=== PATIENT | male | born 1985 | race Caucasian/White ===

== ENCOUNTER 2022-07-25 17:42 | Emergency (ER) | payer BC ==
[2022-07-25] MEDS ORDERED: Lidocaine 1% PF 2 ML SDV INJECT ONE (17:59)
== END 2022-07-25 18:20 | disposition home or self-care (01) ==
LOC: MW.ED 17:42
DX: S61.412A Laceration without foreign body of left hand, initial encounter (principal); W26.8XXA Contact with other sharp object(s), not elsewhere classified, initial encounter
CPT/HCPCS: 12001; 99282

== ENCOUNTER 2023-07-08 09:51 | Emergency (ER) | payer BC ==
[2023-07-08] MEDS ORDERED: Lidocaine 1% 5 ML VIAL INJECT ONE (10:00)
[2023-07-08] MEDS ORDERED: Diphtheria,Pertussis(Acell),Tetanus Vaccine 0.5 ML Syringe IM ONE (10:12)
== END 2023-07-08 10:33 | disposition home or self-care (01) ==
LOC: MW.ED 09:51
DX: S61.011A Laceration without foreign body of right thumb without damage to nail, initial encounter (principal); T14.8XXA Other injury of unspecified body region, initial encounter; Z23 Encounter for immunization; W26.9XXA Contact with unspecified sharp object(s), initial encounter
CPT/HCPCS: 12001; 90471; 90715; 99282-25; 99283